=== PATIENT | female | born 2005 | race African-American/Black ===

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

== ENCOUNTER 2025-05-27 08:49 | Emergency (ER) | payer OTHER ==
[~2025-05-27] VITALS: Ht 170.2 cm; Wt 81.6 kg
[~2025-05-27 08:49] MED LIST: CEPH500C2 MT; SULF1TAB48 MT; TOPUD MT
[2025-05-27 08:53] VITALS: O2SAT 97
[2025-05-27 09:42] LABS: HEMATOCRIT. 36.5 % (36.0-48.0); HEMOGLOBIN. 11.8 g/dL (12.0-16.0); MEAN PLATELET VOLUME 8.5 fl (7.4-10.4); PLATELET 240 x1000/uL (130-400); RED BLOOD CELL COUNT 4.44 mill/uL (4.2-5.4); RED CELL DISTRIBUTION WIDTH 15.0 % (11.6-14.6)
[2025-05-27 09:48] LABS: CREATININE 0.8 mg/dL (0.6-1.0); UREA NITROGEN BLOOD 9 mg/dL (9-23)
[2025-05-27 10:10] VITALS: TEMP 37.4; O2SAT 100
[2025-05-27 10:26] LABS: BAND% 32.0 % (1.0-6.0); LYMPHOCYTES % MANUAL 5.0 % (20.0-60.0); MONOCYTES % MANUAL 4.0 % (2.0-8.0); NEUTROPHILS % MANUAL 59.0 % (45.0-75.0); PLATELET ESTIMATE NORMAL
[2025-05-27 10:34] VITALS: BP 105/62; PULSE 81; RESP 18
[2025-05-27] MEDS: KETOROLAC 15MG/ML VIAL IV ONE (10:34)
[2025-05-27] MEDS: DEXAMETHASONE 10 MG/ML VIAL IV ONE (10:34)
[2025-05-27] MEDS: SODIUM CHLORIDE 0.9% 1,000 ML IV ONE (10:35)
[2025-05-27] MEDS ORDERED: CLINDAMYCIN 600 MG in DEXTROSE 5% WATER 50 ML IV ONE (14:15)
[2025-05-27] MEDS ORDERED: CLIN-194 MT (14:40)
[2025-05-27] MEDS ORDERED: P20 MT (14:40)
[2025-05-27] MEDS: CLINDAMYCIN 600MG PREMIX 50 ML IV NR (14:50)
== END 2025-05-27 15:00 | disposition home or self-care (01) ==
LOC: ER 08:49
DX: J36 Peritonsillar abscess (principal); Z79.899 Other long term (current) drug therapy; Z88.0 Allergy status to penicillin
CPT/HCPCS: 80048; 81025; 87430; 85025; 36415; 96374; 96375; 99284; J1100; J1885; J3490; J7030; Z7610 ×2; J7060